=== PATIENT | male | born 1950 | race Caucasian/White ===

== ENCOUNTER → 2016-08-19 | Outpatient (CLI) | payer OTHER ==
[~2016-08-19] MED LIST: AMANTADINE HCL100 MG PO; AMANTADINE100 M1 PO; AMLODIPINE BESYL5 MG PO; BACLOFEN20 M1 PO; BENZONATATE PO; CELEBREX PO; CHOLESTROL MED; CYMBALTA PO; DICLOFENAC PO; DIPHENOXYLATE/A1 TA1 PO; GABAPENTIN400 M2 PO; GABAPENTIN600 MG PO; HYDROCHLOROTH12.5 M1 PO; HYDROCODONE-APA1 T54 PO; KADIAN PO; KLONOPIN1 MG PO; KLONOPIN2 MG PO; LASIX20 MG PO; LEVAQUIN PO; LORTAB 10/500 T1 TAB PO; LORTAB PO; METHADONE HCL10 MG PO; METHADONE PO; METHADOSE PO; MOBIC15 MG PO; MORPHINE SULFAT15 M3 PO; MORPHINE SULFAT15 MG PO; MORPHINE SULFAT30 M4 PO; MS CONTIN30 M1 PO; NEURONTIN300 MG PO; NEURONTIN600 MG PO; PHENERGAN25 MG PO; PREDNISONE10 MG PO; PROMETHAZINE HC25 MG PO; PROTONIX20 MG PO; SIMVASTATIN20 MG PO; TOPAMAX25 MG PO; TYLENOL325 M1 PO; VICODIN 5/500 T1 TAB PO; ZOCOR10 MG PO; ZOCOR20 MG PO
--- NOTE | ~2016-08-19 | CR150 ---
[facility] A Service of [facility] RADIOLOGY TEXT RESULTS PATIENT: ANDRE HOPE LOCATION: [facility] : 54 UNIT #: [id number] AGE: [address]: Ashish Verma MD SEX: M ORDER DR: [id number] [facility] [address] [place], [place] [address] [id number] MR#: [id number] Acc #: [id number] NAME: ANDRE HOPE : 1950 SEX: M STUDY DATE/TIME: 08/19/2016 9:45 UNIT: [facility] ROOM: STUDY DESCRIPTION: CR Hip Min 2 Views Lt Attending Physician: Ashish Verma M.D. Referring Physician: Ashish Verma M.D. Ordering Physician: Ashish Verma M.D. Primary Care Physician: Monalisa Shetty M.D. MEDICAL IMAGING REPORT This report is preliminary unless electronic signature is present EXAM Left hip 3 views, 08/19/2016 HISTORY Left hip pain for 1 year. Left hip osteoarthritis. FINDINGS 3 views of the left hip demonstrate no fracture. There is degenerative change with minimal narrowing of the left hip joint. The bones are normally mineralized. There is no soft tissue abnormality. Postoperative changes of prior fusion in the visualized lower lumbar spine. Dictated by... Robert Coleman M.D. THIS IS AN ELECTRONICALLY VERIFIED REPORT Robert Coleman M.D. at 08/20/2016 2:10 PM MIRIAM/elias TD: 08/20/2016 05:25 JOB #: [id number] MEDICAL IMAGING REPORT Page 1 of 1 COPY
== END | disposition home or self-care (01) ==
LOC: CCAT 09:05
DX: M25.552 Pain in left hip (principal)
CPT/HCPCS: 73502

== ENCOUNTER 2016-09-23 06:20 | Emergency (ER) | payer OTHER ==
[~2016-09-23] VITALS: Ht 180.3 cm; Wt 111.1 kg
--- NOTE | ~2016-09-23 | CR211 ---
[facility] A Service of [facility] & [facility] RADIOLOGY TEXT RESULTS PATIENT: ANDRE HOPE LOCATION: [facility] : 54 UNIT #: [id number] AGE: [address]: Hakeem Vargas MD SEX: M ORDER DR: [id number] [facility] [address] [place], [place] [address] [id number] MR#: [id number] Acc #: [id number] NAME: ANDRE HOPE : 1950 SEX: M STUDY DATE/TIME: 09/23/2016 7:31 UNIT: [facility] ROOM: STUDY DESCRIPTION: CR Ribs Uni 2 View W PA Ch Rt Attending Physician: Hakeem Vargas M.D. Ordering Physician: Hakeem Vargas M.D. Primary Care Physician: Monalisa Shetty M.D. MEDICAL IMAGING REPORT This report is preliminary unless electronic signature is present EXAM Frontal chest and right rib series INDICATION Right-sided rib pain after a fall today. PROCEDURE Frontal view of the chest. Three additional views of the right ribs. COMPARISON None. FINDINGS No displaced right-sided rib fracture. Mild atelectasis in the left lung base. IMPRESSION No displaced right rib fracture. Dictated by... Dexter Morgan M.D. THIS IS AN ELECTRONICALLY VERIFIED REPORT Dexter Morgan M.D. at 09/24/2016 8:14 AM VIVIANA/jose TD: 09/23/2016 08:26 JOB #: [id number] MEDICAL IMAGING REPORT Page 1 of 1 COPY
== END 2016-09-23 08:21 | disposition home or self-care (01) ==
LOC: CED 06:20
DX: S20.211A Contusion of right front wall of thorax, initial encounter (principal); E78.5 Hyperlipidemia, unspecified; J44.9 Chronic obstructive pulmonary disease, unspecified; G47.33 Obstructive sleep apnea (adult) (pediatric); F17.200 Nicotine dependence, unspecified, uncomplicated; Z90.49 Acquired absence of other specified parts of digestive tract; Z98.890 Other specified postprocedural states; Z79.899 Other long term (current) drug therapy; Z88.5 Allergy status to narcotic agent; W18.2XXA Fall in (into) shower or empty bathtub, initial encounter; Y92.009 Unspecified place in unspecified non-institutional (private) residence as the place of occurrence of the external cause
CPT/HCPCS: 71101; 94010; 99284